=== PATIENT | male | born 1960 | race Caucasian/White ===

== ENCOUNTER 2022-10-30 19:14 | Observation (INO) | payer OTHER ==
[2022-10-30] MEDS ORDERED: Morphine 4 MG/ML Syringe IM ONE (20:17)
[2022-10-30] MEDS ORDERED: Ondansetron 4 MG Tab.DIS PO ONE (20:17)
[2022-10-30 20:30] LABS: BILIRUBIN,URINE NEGATIVE (NEGATIVE); GLUCOSE,URINE NEGATIVE (NEGATIVE); KETONES,URINE TRACE mg/dL (NEGATIVE); LEUKOCYTE ESTERASE,URINE NEGATIVE (NEGATIVE); NITRITE,URINE NEGATIVE (NEGATIVE); OCCULT BLOOD,URINE LARGE (NEGATIVE); PH,URINE 5.5 (5.0-8.0); PROTEIN,URINE 30 mg/dL (NEGATIVE); UROBILINOGEN,URINE 0.2 EU/dL (<2.0)
[2022-10-30 20:44] LABS: APPEARANCE,URINE SLT CLOUDY; COLOR,URINE RED
[2022-10-30 20:45] LABS: BACTERIA,URINE FEW (NEGATIVE); RBC,URINE TOO NUMEROUS TO CT (0-2/HPF)
[2022-10-30 21:31] LABS: BASOPHILS ABSOLUTE AUTO 0.1 K/uL (0.0-0.1); BASOPHILS PERCENT AUTO 0.8 % (0.0-1.5); EOSINOPHILS ABSOLUTE AUTO 0.2 K/uL (0.0-0.7); EOSINOPHILS PERCENT AUTO 2.5 % (0.0-7.0); HEMATOCRIT 41.7 % (38.0-50.0); HEMOGLOBIN 14.7 g/dL (13.0-17.0); LYMPHOCYTES ABSOLUTE AUTO 1.7 K/uL (0.6-2.4); MEAN CORPUSCULAR HEMOGLOBIN 30.3 pg (27.0-32.0); MEAN CORPUSCULAR HGB CONC 35.3 g/dL (31.0-37.0); MONOCYTES ABSOLUTE AUTO 0.5 K/uL (0.0-0.8); MONOCYTES PERCENT AUTO 6.2 % (0.0-15.0); NEUTROPHILS ABSOLUTE AUTO 5.4 K/uL (1.4-5.7); NEUTROPHILS PERCENT AUTO 68.5 % (48.0-80.0); NRBC ABSOLUTE 0 K/uL; PLATELET COUNT,PLT 254 K/uL (150-400); RED BLOOD CELL COUNT 4.85 M/uL (4.50-5.90); WHITE BLOOD CELL COUNT,WBC 7.86 K/uL (4.0-11.0)
[2022-10-30 22:06] LABS: A/G RATIO 1.1 (0.9-1.6); ALBUMIN 3.9 g/dL (3.4-5.0); BILIRUBIN TOTAL 0.4 mg/dL (0.2-1.0); CALCIUM 9.4 mg/dL (8.5-10.1); CARBON DIOXIDE,CO2 23.7 mmol/L (21.0-32.0); CREATININE 1.8 mg/dL (0.8-1.3); EST CRCL DRUG DOSING (CG) 46.85 mL/min; POTASSIUM,K 4.3 mmol/L (3.5-5.1); PROTEIN TOTAL,TP 7.5 g/dL (6.4-8.2)
[2022-10-30] MEDS ORDERED: Cefdinir 300 MG Cap PO ONE (23:35)
[2022-10-31] MEDS ORDERED: Sodium Chloride 0.9% 2.5 ML Syringe FLUSH PRN (00:02)
[2022-10-31] MEDS ORDERED: Sodium Chloride 0.9% 1,000 ML IV ONE (00:02)
[2022-10-31] MEDS ORDERED: Sodium Chloride 0.9% 10 ML Syringe FLUSH PRN (00:02)
[2022-10-31 00:28] LABS: BILIRUBIN,URINE NEGATIVE (NEGATIVE); GLUCOSE,URINE 500 mg/dL (NEGATIVE); KETONES,URINE NEGATIVE (NEGATIVE); LEUKOCYTE ESTERASE,URINE NEGATIVE (NEGATIVE); NITRITE,URINE NEGATIVE (NEGATIVE); OCCULT BLOOD,URINE LARGE (NEGATIVE); PROTEIN,URINE NEGATIVE (NEGATIVE); UROBILINOGEN,URINE 0.2 EU/dL (<2.0)
[2022-10-31 00:36] LABS: AMORPHOUS SEDIMENT,URINE FEW (NEGATIVE); APPEARANCE,URINE SLT CLOUDY; BACTERIA,URINE FEW (NEGATIVE); COLOR,URINE DARK YELLOW; EPITHELIAL CELLS,URINE FEW (NONE-FEW); RBC,URINE TOO NUMEROUS TO CT (0-2/HPF)
[2022-10-31] MEDS ORDERED: 50% Dextrose in Water 50 ML Syringe IVPUSH PRN (06:00)
[2022-10-31] MEDS ORDERED: Glucagon,Human Recombinant 1 MG Vial IM PRN (06:00)
[2022-10-31] MEDS: Insulin Aspart 100 Units/ML 3 ML Pen SUBCUT SCH ×2 (09:11→11:44)
[2022-10-31 09:56] LABS: BASOPHILS ABSOLUTE AUTO 0.1 K/uL (0.0-0.1); BASOPHILS PERCENT AUTO 0.7 % (0.0-1.5); EOSINOPHILS ABSOLUTE AUTO 0.3 K/uL (0.0-0.7); EOSINOPHILS PERCENT AUTO 3.5 % (0.0-7.0); MEAN CORPUSCULAR HEMOGLOBIN 30.4 pg (27.0-32.0); MEAN CORPUSCULAR HGB CONC 35.1 g/dL (31.0-37.0); MEAN CORPUSCULAR VOLUME 86.7 fL (80.0-98.0); MONOCYTES ABSOLUTE AUTO 0.7 K/uL (0.0-0.8); MONOCYTES PERCENT AUTO 8.2 % (0.0-15.0); NEUTROPHILS ABSOLUTE AUTO 5.2 K/uL (1.4-5.7); NEUTROPHILS PERCENT AUTO 63.6 % (48.0-80.0); NRBC ABSOLUTE 0 K/uL; PLATELET COUNT,PLT 248 K/uL (150-400); RED BLOOD CELL COUNT 4.27 M/uL (4.50-5.90); WHITE BLOOD CELL COUNT,WBC 8.17 K/uL (4.0-11.0)
[2022-10-31 10:09] LABS: BLOOD UREA NITROGEN,BUN 21 mg/dL (7.0-18.0); CALCIUM 8.6 mg/dL (8.5-10.1); CREATININE 1.5 mg/dL (0.8-1.3); EST CRCL DRUG DOSING (CG) 56.23 mL/min; GLUCOSE RANDOM 224 mg/dL (74-106)
[2022-10-31 10:30] LABS: ESTIMATED GFR 52 mL/min (>60)
[2022-10-31] MEDS ORDERED: Metoprolol Succinate 100 MG Tab.ER PO SCH (11:30)
[2022-10-31] MEDS ORDERED: metFORMIN 500 MG Tab PO SCH (11:30)
[2022-10-31] MEDS ORDERED: amLODIPine 5 MG Tab PO SCH (11:30)
[2022-10-31] MEDS ORDERED: Hydrochlorothiazide 12.5 MG Cap PO SCH (11:30)
[2022-10-31] MEDS ORDERED: Aspirin 81 MG Tab.Chew PO SCH (11:30)
[2022-10-31] MEDS ORDERED: Albuterol 8 GM Inhaler INH PRN (12:00)
[2022-10-31] MEDS ORDERED: atorvaSTATin 40 MG Tab PO SCH (21:00)
[2022-10-31] MEDS ORDERED: TERAZOSIN 10 MG PO SCH (21:00)
== END 2022-10-31 13:00 | disposition home or self-care (01) ==
LOC: MW.ED 19:14 → MW.MS 10-31 01:43
PROVIDERS: ADMIT Internal Medicine; ATTEND Internal Medicine
DX: N20.1 Calculus of ureter (principal); R79.89 Other specified abnormal findings of blood chemistry; I25.10 Atherosclerotic heart disease of native coronary artery without angina pectoris; E78.00 Pure hypercholesterolemia, unspecified; I10 Essential (primary) hypertension; J44.9 Chronic obstructive pulmonary disease, unspecified; G47.30 Sleep apnea, unspecified; F43.10 Post-traumatic stress disorder, unspecified; E11.9 Type 2 diabetes mellitus without complications; Z87.891 Personal history of nicotine dependence; Z79.82 Long term (current) use of aspirin; Z79.899 Other long term (current) drug therapy; Z79.84 Long term (current) use of oral hypoglycemic drugs
CPT/HCPCS: 36415; 74176; 80048; 80053; 81001; 82947; 83690; 85025; 96360; 96372; 99285; A9270; G0378; J1815; J2270; J7030; 99284